=== PATIENT | female | born 1955 | race Caucasian/White ===

== ENCOUNTER 2023-01-15 11:02 | Inpatient (IN) ==
--- NOTE | 2023-01-15 11:30 | ED Triage Note ---
Date of Service January 15, 2023 History of Present Illness This patient was briefly evaluated while in triage. An abbreviated physical exam was performed. This patient is a 68-year-old Female who presents to the ED for evaluation of evaluation after worsening infection of the right eye. Patient believes that she sustained a bite to the eye. She was referred from Dr. Haile, patient's PCP patient is currently taking doxycycline. Patient is allergic to penicillins she reports swelling of the right face, as well as stabbing pain around the eye, and pressure in the right may also radiates to right posterior scalp region. Physical Exam CONSTITUTIONAL: Healthy and well nourished. Patient does not appear toxic HEENT: Examination shows notable edema and erythema about the right eye and right facial region. No conjunctival injection. EOMs intact without evidence for entrapment. This caused mild discomfort. NECK: Full active range of motion without discomfort. LYMPHATICS: No cervical chain adenopathy. RESPIRATORY: Clear to auscultation bilaterally with no wheezing, crackles, rhonchi or stridor. CARDIOVASCULAR: Regular rate and rhythm with no murmurs, rubs or gallops. INTEGUMENTARY: No rash or other significant dermatologic conditions noted. HEMATOLOGIC: No ecchymosis or petechiae. PSYCHIATRIC: Positive affect. NEUROLOGIC: Cranial nerves II-XII grossly intact. No focal neurologic deficits noted. Facial sensations are intact Initial orders for labs and / or imaging were placed and patient was placed in the waiting area until a bed is available. Please see further documentation for the full ED course.
[2023-01-15 12:59] LABS: Basophils # (auto) 0.03 K/uL (0-0.2); Basophils % (auto) 0.3 %; Eosinophils # (auto) 0.11 K/uL (0-0.50); Hematocrit (blood only) 41.8 % (37.0-47.0); Hemoglobin 13.5 g/dl (12.0-16.0); Immature Granulocytes # (auto) 0.03 K/uL (0.01-0.20); Immature Granulocytes % (auto) 0.3 %; Lymphocytes # (auto) 2.76 K/uL (1.2-3.4); Lymphocytes % (auto) 25.7 %; Mean Corpuscular Hemoglobin 27.7 pg (25.0-34.0); Mean Corpuscular Hgb Conc 32.3 g/dL (32.0-36.0); Mean Corpuscular Volume 85.8 fL (80.0-100.0); Mean Platelet Volume 9.3 fL (9.4-12.4); Monocytes # (auto) 1.02 K/uL (0.11-0.59); Monocytes % (auto) 9.5 %; Neutrophils # (auto) 6.79 K/uL (1.40-6.50); Neutrophils % (auto) 63.2 %; Platelet Count 284 K/uL (130-400); RDW Coefficient of Variation 13.3 % (11.5-14.5); RDW Standard Deviation 41.8 fL (36.4-46.3); Red Blood Count 4.87 M/uL (4.20-5.40); White Blood Count 10.74 K/ul (4.8-10.8)
[2023-01-15 13:50] LABS: Albumin Level 4.1 gm/dl (3.4-5.0); Bilirubin,Total 0.4 mg/dl (0.2-1.0); Calcium 9.4 mg/dl (8.6-10.3); Potassium 4.3 mmol/L (3.5-5.1)
[2023-01-15 13:56] LABS: Albumin Globulin Ratio 1.3 (0.9-2); BUN Creatinine Ratio 16.9 (10-20); Creatinine Clr Calc Pharmacy 88.2 ml/min; Est GFR (Non-African American) 90.6 ml/min; Globulin 3.2 gm/dl (2.5-4.0); Total Protein 7.3 gm/dl (6.0-8.3)
[2023-01-15] MEDS ORDERED: OPTIRAY 350 100ml IV ONE (14:12)
[2023-01-15] MEDS ORDERED: valACYclovir HCL 500 MG TABLET PO ONE (14:39)
[2023-01-15] MEDS ORDERED: cefTRIAXone SODIUM 2,000 MG/70 ML BAG IV STA (14:39)
--- NOTE | 2023-01-15 14:46 | Emergency Department Note ---
Impression & Plan Periorbital cellulitis of right eye, Acute facial pain ED Provider Note NAME: BINU GIBBONS AGE: 68 SEX: F : 1955 ARRIVES VIA: Walk-In INFORMANT: Patient ED PROVIDER(S): Dylan Quinn DO CHIEF COMPLAINT: facial pain HPI: Patient is a 68-year-old female who presents to the ER for swelling and redness around the right eye. Denies any fevers. No headache or change in vision. She does have some pain within the eye. No chest pain or shortness of breath. No nausea, vomiting, or diarrhea. No dysuria, urgency, or frequency. She was seen by her PCP on Thursday and placed on antibiotics and started doxycycline and has continued to get worse. No other exacerbating or remitting factors. She notes the swelling around her eye has worsened as well. It is red and warm. She does notice some pain with movement of the eye. PAST MEDICAL HISTORY:See Below PAST SURGICAL HISTORY:See Below FAMILY HISTORY:See Below SOCIAL HISTORY:See Below HOME MEDICATIONS:See Below ALLERGIES:See Below VITALS:See Below PHYSICAL EXAMINATION: GENERAL: Sitting up in bed, alert, well appearing, well nourished, no distress, non-toxic EYE EXAM: normal conjunctiva. PERRL and EOM's intact. FACE: Swelling over the right side of face tracking under the right cheek and around the right eye. Small amount of induration. Small scab. There is a scab behind the right ear. OROPHARYNX: no exudate, no erythema, lips, buccal mucosa, and tongue normal and mucous membranes are moist NECK: supple, no nuchal rigidity, no adenopathy, non-tender LUNGS: Clear to auscultation. Normal chest wall mechanics HEART: no murmurs, S1 normal and S2 normal ABDOMEN: abdomen soft, non-tender, normo-active bowel sounds, no masses, no rebound or guarding. UPPER EXTREMITIES: upper extremities are grossly normal. LOWER EXTREMITIES: No pitting edema. NEURO EXAM: Normal sensorium, cranial nerves II-XII grossly intact, normal spe ech, no gross weakness of arms, no gross weakness of legs. MEDICAL DECISION MAKING: Patient is a 68-year-old female who presents ER for erythema around the right eye. Currently on antibiotics and getting worse. IV was established blood work was obtained. Labs show no significant leukocytosis or anemia. BMP along with LFTs bilirubin was unremarkable. COVID was negative. Blood sugar was slightly low. On exam I question if this is zoster as she does have scabbed lesions behind the ear but cannot be certain. She does have a clear cellulitis. Patient was given IV antibiotics. She was updated bedside. Did stain the right eye and saw no dendritic lesions. Patient was updated bedside. Discussed with the hospitalist admitted for further work-up. Discussed with care managers in regards to admission and further work-up. Triage Nursing notes reviewed. Limited review of prior medical records performed Vital Signs: reviewed and remarkable for HTN and tachy Differential diagnosis: Cellulitis, abscess, MRSA infection, DVT, necrotizing fasciitis, dermatitis, drug eruption, allergic reaction, as well as other pathologies. ER treatment provided: See below Diagnostics interpreted by me include EKG and cardiac monitoring as listed below: -Cardiac Monitoring: An order was placed for continuous cardiac monitoring. The monitor shows a rate of 101 with sinus rhythm. -ECG: none -Laboratory studies:Interpreted by me as stated above in MDM and shown below. Imaging studies: Xrays: As interpreted by me:none CTs show: CT of the face shows a cellulitis Consultation(s): Discussed with Dr. Washburn for further evaluation management and treatment Critical Care: None Past Med/Surg History Social History Smoking Status: Never smoker Preferred Language: Setswana Feels Safe at Home: Yes Allergies Allergies Allergy/AdvReac Type Severity Reaction Status Date / Time Penicillins Allergy Severe SEVERE RASH Verified 01/15/23 15:32 Home Meds Home Medications Medication Instructions Recorded Confirmed bupropion HCl 150 mg tablet,12 hr 150 mg PO BID 01/15/23 01/15/23 sustained-release doxycycline hyclate 100 mg tablet 100 mg PO BID 01/15/23 01/15/23 lansoprazole 30 mg capsule,delayed 30 mg PO QAM 01/15/23 01/15/23 release levothyroxine 50 mcg tablet 50 mcg PO QAM 01/15/23 01/15/23 lorazepam 0.5 mg tablet 0.25 mg PO TID PRN Anxiety 01/15/23 01/15/23 lovastatin 40 mg tablet 40 mg PO HS 01/15/23 01/15/23 metformin 500 mg tablet 500 mg PO QAM 01/15/23 01/15/23 ramipril 5 mg capsule 5 mg PO QAM 01/15/23 01/15/23 Results & Data (ED) Vital Signs Vital Signs - 24 hr 01/15/23 11:23 01/15/23 16:00 Temperature 37.0 C Temperature Source Temporal Artery Scan Pulse Rate 100 H Pulse Rate [Finger] 102 H Respiratory Rate 18 20 Respiratory Effort / Characteristics Non-Labored Spontaneous Respiratory Depth Normal Respiratory Pattern Regular Blood Pressure 142/84 H Blood Pressure [Right Arm] 135/97 Blood Pressure Mean 103 Blood Pressure Mean [Right Arm] 109 Blood Pressure Position Sitting Blood Pressure Position [Right Arm] Sitting Pulse Oximetry 98 99 Oxygen Delivery Method Room Air Room Air Sepsis Recent Fever Within 48 Hours No Sepsis New/Unexplained Change in Mental Status No Sepsis Action Taken by Nursing No Action Required Laboratory Data 01/15/23 12:38 01/15/23 12:38 Lab Results 01/15/23 01/15/23 01/15/23 Range/Units 12:38 12:38 16:29 WBC 10.74 (4.8-10.8) K/ul RBC 4.87 (4.20-5.40) M/uL Hgb 13.5 (12.0-16.0) g/dl Hct 41.8 (37.0-47.0) % MCV 85.8 (80.0-100.0) fL MCH 27.7 (25.0-34.0) pg MCHC 32.3 (32.0-36.0) g/dL RDW Std Deviation 41.8 (36.4-46.3) fL RDW Coeff of Chelly 13.3 (11.5-14.5) % Plt Count 284 (130-400) K/uL MPV 9.3 L (9.4-12.4) fL Immature Gran % (Auto) 0.3 % Neut % (Auto) 63.2 % Lymph % (Auto) 25.7 % [place] % (Auto) 9.5 % Eos % (Auto) 1.0 % Baso % (Auto) 0.3 % Neut # (Auto) 6.79 H (1.40-6.50) K/uL Lymph # (Auto) 2.76 (1.2-3.4) K/uL [place] # (Auto) 1.02 H (0.11-0.59) K/uL Eos # (Auto) 0.11 (0-0.50) K/uL Baso # (Auto) 0.03 (0-0.2) K/uL Immature Gran # (Auto) 0.03 (0.01-0.20) K/uL Sodium 140 (136-145) mmol/L Potassium 4.3 (3.5-5.1) mmol/L Chloride 106 (98-107) mmol/L Carbon Dioxide 28 (21-32) mmol/L Anion Gap 6 (3-11) BUN 11 (6-23) mg/dl Creatinine 0.65 (0.6-1.2) mg/dl Est Cr Clr Drug Dosing 88.2 ml/min Est GFR ( Amer) 105.0 ml/min Est GFR (Non-Af Amer) 90.6 ml/min BUN/Creatinine Ratio 16.9 (10-20) Glucose 68 L (70-99(Fasting)) mg/dl Calcium 9.4 (8.6-10.3) mg/dl Total Bilirubin 0.4 (0.2-1.0) mg/dl AST 22 (13-39) U/L ALT 26 (7-52) U/L Alkaline Phosphatase 90 (34-104) U/L Total Protein 7.3 (6.0-8.3) gm/dl Albumin 4.1 (3.4-5.0) gm/dl Globulin 3.2 (2.5-4.0) gm/dl Albumin/Globulin Ratio 1.3 (0.9-2) SARS-CoV-2, RNA, NAAT NEGATIVE (NEGATIVE) Administered Medications Vancomycin HCl 1,750 mg/ (Sodium Chloride) 535 mls @ 200 mls/hr IV NOW ONE Stop: 01/15/23 19:55 Last Admin: 01/15/23 17:52 Dose: 200 mls/hr Documented By: NMS Discontinued Medications Ceftriaxone Sodium (Rocephin) 2,000 mg in 70 mls @ 140 mls/hr IV NOW STA Stop: 01/15/23 15:08 Last Infusion: 01/15/23 15:30 Dose: 0 mls/hr Documented By: Admin: 01/15/23 14:52 Dose: 140 mls/hr Documented By: QGV Ioversol (Optiray 350 100ml) 94 ml IV ONCE ONE Stop: 01/15/23 14:13 Last Admin: 01/15/23 14:13 Dose: 94 ml Documented By: ZOFIA Proparacaine HCl (Proparacaine 0.5% 225 Drops/15 Ml Btl) Confirm Administered Dose 225 drops .ROUTE .STK-MED ONE Stop: 01/15/23 15:19 Last Admin: 01/15/23 15:32 Dose: Not Given Documented By: QGV Proparacaine HCl (Proparacaine 0.5% 225 Drops/15 Ml Btl) 2 drops OP NOW STA Stop: 01/15/23 15:32 Last Admin: 01/15/23 15:32 Dose: 2 drops Documented By: QGV Valacyclovir HCl (Valacyclovir Hcl 500 Mg Tablet) 1,000 mg PO NOW ONE Stop: 01/15/23 14:40 Last Admin: 01/15/23 14:51 Dose: 1,000 mg Documented By: QGV Imaging Data Radiologist's Impression: Face CT 01/15/23 11:30 CT facial bones w con HISTORY: 68 years-old Female R periorbital cellulitis acute right faci al/periorbital soft tissue swelling COMPARISON: None TECHNIQUE: Multiple axial CT images of the maxillofacial bones were obtained following the intravenous administration of 94 mL Optiray 350. A dose lowering technique was used consistent with the principals of EMILY. FINDINGS: The imaged intracranial structures are unremarkable. The orbits are within normal limits. Moderate subcutaneous edema is noted inferior and lateral to the right orbit. The bilateral globes and post septal tissues are within normal limits. No drainable fluid collection, discrete mass or opaque foreign body identified. No pathologically enlarged lymph nodes. The parotid and submandibular glands are within normal limits. The imaged airway appears patent. No acute facial bone fracture. The mastoid air cells and paranasal sinuses appear clear. The patient is edentulous. Degenerative changes of the cervical spine. IMPRESSION: 1. Moderate right facial/periorbital subcutaneous edema may represent a contusion versus cellulitis. No discrete fluid collection. 2. Normal appearance of the bilateral globes and post septal soft tissues. 3. No lymphadenopathy. ACT 112: Negative or not required by law. The above report was generated using voice recognition software. It may contain grammatical, syntax or spelling errors. Electronically signed by: Angus Benoit M.D. 01/15/2023 3:02 PM Discharge Plan Visit Data Chief Complaint: Facial Injury/Pain Stated Complaint: LUMP ON FACE ED Provider: Dylan Quinn Discharge Problem: Periorbital cellulitis of right eye, Acute facial pain Forms Stand Alone Forms: My [facility] Prescriptions Prescriptions: No Action metformin 500 mg tablet 500 mg PO QAM Rx Instructions: HOLD FOR 2 DAYS D/T CT SCAN(01/15/23) bupropion HCl 150 mg tablet sustained-release 12 hr 150 mg PO BID lovastatin 40 mg tablet 40 mg PO HS lorazepam 0.5 mg tablet 0.25 mg PO TID PRN (Reason: Anxiety) levothyroxine 50 mcg tablet 50 mcg PO QAM lansoprazole 30 mg capsule,delayed release(DR/EC) 30 mg PO QAM doxycycline hyclate 100 mg tablet 100 mg PO BID Rx Instructions: STARTED 01/13/23 FOR 10 DAYS ramipril 5 mg capsule 5 mg PO QAM Referrals Referrals: Nena Monge M.D. [Outside Practitioners] -
--- NOTE | 2023-01-15 15:03 | CT Scan Report ---
CT facial bones w con HISTORY: 68 years-old Female R periorbital cellulitis acute right facial/periorbital soft tissue swe lling COMPARISON: None TECHNIQUE: Multiple axial CT images of the maxillofacial bones were obtained following the intravenou s administration of 94 mL Optiray 350. A dose lowering technique was used consistent with the [facility]. FINDINGS: The imaged intracranial structures are unremarkable. The orbits are within normal limits. Moderate puga bcutaneous edema is noted inferior and lateral to the right orbit. The bilateral globes and post sept al tissues are within normal limits. No drainable fluid collection, discrete mass or opaque foreign b charu identified. No pathologically enlarged lymph nodes. The parotid and submandibular glands are with in normal limits. The imaged airway appears patent. No acute facial bone fracture. The mastoid air cells and paranasal sinuses appear clear. The patient is edentulous. Degenerative changes of the cervical spine. IMPRESSION: 1. Moderate right facial/periorbital subcutaneous edema may represent a contusion versus cellulitis. No discrete fluid collection. 2. Normal appearance of the bilateral globes and post septal soft tissues. 3. No lymphadenopathy. ACT 112: Negative or not required by law. The above report was generated using voice recognition software. It may contain grammatical, syntax o r spelling errors. Electronically signed by: Angus Benoit M.D. 01/15/2023 3:02 PM
[2023-01-15] MEDS ORDERED: PROPARACAINE 0.5% 225 DROPS/15 ML BTL ONE (15:18)
[2023-01-15] MEDS ORDERED: PROPARACAINE 0.5% 225 DROPS/15 ML BTL OP STA (15:31)
[2023-01-15] MEDS ORDERED: VANCOMYCIN CONSULT ACTIVE PRN ×2 (16:46→19:19)
--- NOTE | 2023-01-15 16:53 | History & Physical Report ---
Date of Service January 15, 2023 Assessment & Plan (1) Periorbital cellulitis of right eye: Plan: - Admit to med/surg - Diabetic diet - Cool compresses to affected area q shift - Continue empiric Rocephin 2g IV daily + Vanco - CBC and CMP reviewed, no leukocytosis or electrolyte derangements - Blood cultures ordered/pending - Monitor closely for worsening sx - would consider consult to ophthalmology if worsening (2) Essential hypertension: Plan: - Chronic/controlled - Continue Rampiril (3) Hypothyroidism: Plan: - Chronic/stable - Continue Levothyroxine (4) Depression with anxiety: Plan: - Chronic/stable - Continue Wellbutrin and Ativan PRN (5) Type 2 diabetes mellitus: Plan: - Normally takes Metformin - Hold x 48 hrs due to receipt of contrast - BSG AC and HS - Can add short acting insulin coverage for BSG >180 - Diabetic diet ordered Plan Lovenox will be utilized for DVT ppx. Will consult the media promoter due to patient recently losing her of 35 years and has not yet started grief counseling. Above plan of care has been d/w Dr. Newby who has also seen and evaluated this patient. Further orders as warranted. History of Present Illness Chief Complaint: Facial swelling Primary Care Provider: Karla Haile MD Matt Oro is a pleasant 68 yo WF with a pmhx of HTN, depression/anxiety, GERD, hypothyroidism, hyperlipidemia, and who presented to the ER at the alex mmendation of her PCP d/t worsening facial swelling/pain. Patient reports that she woke up on Thursday morning with a small pimple-like lesion to the right of her right eye. She believes that she may have been bit by a spider. She reports that the lesion had a small yellow area in the center. On Thursday, she had worsening swelling and redness which prompted her to seek evaluation by her PCP. She was placed on Doxycycline by her PCP. Since then, she has had progressively worsening redness and swelling. She is also having photosensitivity but not having pain with eye movements. She denies fever/chills, n/v. She has had shingles in the past but denies having any draining vesicular lesions. She fo llowed up with her PCP today and was referred to the ER for failed outpatient oral antibiotics. Her workup in the ER today demonstrated a normal wbc count, no shift, afebrile. CT performed consistent with periorbital cellulitis, no orbital involvement. No fluid collection. She was medicated with a dose of IV Rocephin as well as a dose of oral Valacyclovir for possible shingles and has been referred to the hospitalists for admission. Allergies Allergy/AdvReac Type Severity Reaction Status Date / Time Penicillins Allergy Severe SEVERE RASH Verified 01/15/23 15:32 Home Medications Medication Instructions Recorded Confirmed Type bupropion HCl 150 mg tablet,12 hr 150 mg PO BID 01/15/23 01/15/23 History sustained-release doxycycline hyclate 100 mg tablet 100 mg PO BID 01/15/23 01/15/23 History lansoprazole 30 mg capsule,delayed 30 mg PO QAM 01/15/23 01/15/23 History release levothyroxine 50 mcg tablet 50 mcg PO QAM 01/15/23 01/15/23 History lorazepam 0.5 mg tablet 0.25 mg PO TID PRN Anxiety 01/15/23 01/15/23 History lovastatin 40 mg tablet 40 mg PO HS 01/15/23 01/15/23 History metformin 500 mg tablet 500 mg PO QAM 01/15/23 01/15/23 History ramipril 5 mg capsule 5 mg PO QAM 01/15/23 01/15/23 History Past Med/Surg History Social History Smoking Status: Never smoker Preferred Language: Mohawk Feels Safe at Home: Yes Physical Exam Physical Exam: GENERAL: 68 yo Well-developed, well-nourished WF. NAD. LUNGS: Clear to auscultation bilaterally. No W/R/R. CARDIOVASCULAR: Regular rate and rhythm. SKIN: Erythema and edema with marked tenderness to light palpation lateral to R eye (hinduism area) and upper cheek. Small punctate lesion to R of R eye. No pain with EOMs. No active drainage or bleeding. No fluctuant area noted. No vesicular lesions/rash appreciated. Results & Data Results & Data Vital Signs (Past 12 Hours) Vital Signs Temp Pulse Pulse Resp BP BP Pulse Ox 01/15/23 16:00 102 H 20 135/97 99 01/15/23 11:23 37.0 C 100 H 18 142/84 H 98 O2 Del Method 01/15/23 16:00 Room Air 01/15/23 11:23 Room Air Laboratory Results 01/15/23 12:38 01/15/23 12:[address] 01/15/23 11:30 CT facial bones w con HISTORY: 68 years-old Female R periorbital cellulitis acute right facial/periorbital soft tissue swelling COMPARISON: None TECHNIQUE: Multiple axial CT images of the maxillofacial bones were obtained following the intravenous administration of 94 mL Optiray 350. A dose lowering technique was used consistent with the principals of EMILY. FINDINGS: The imaged intracranial structures are unremarkable. The orbits are within normal limits. Moderate subcutaneous edema is noted inferior and lateral to the right orbit. The bilateral globes and post septal tissues are within normal limits. No drainable fluid collection, discrete mass or opaque foreign body identified. No pathologically enlarged lymph nodes. The parotid and submandibular glands are within normal limits. The imaged airway appears patent. No acute facial bone fracture. The mastoid air cells and paranasal sinuses appear clear. The patient is edentulous. Degenerative changes of the cervical spine. IMPRESSION: 1. Moderate right facial/periorbital subcutaneous edema may represent a contusion versus cellulitis. No discrete fluid collection. 2. Normal appearance of the bilateral globes and post septal soft tissues. 3. No lymphadenopathy. ACT 112: Negative or not required by law. The above report was generated using voice recognition software. It may contain grammatical, syntax or spelling errors. Electronically signed by: Angus Benoit M.D. 01/15/2023 3:02 PM Supervising Physician Co-Signing Physician Notes Patient seen and examined, chart reviewed, case discussed with Talia Woodward PA-C and I agree with the assessment and plan as above except as otherwise noted Labs and images reviewed Matt is a 68-year-old female who experienced a stinging bite on her cheek/eye 4 days ago and has [facility] ehad expandaing erythema and tenderness of the R cheek and eye. Has not improved on outpatient doxycycline. No fevers, chills, sweats. Patient is also intermittently tearful, reports her recently after they were for 34 years. She has a bereavement group she will be attending in the beginning of January but has been struggling with grief and has not reached out to anyone for counseling other than this. Does request a media promoter visit while in the hospital. Visual acuity is intact without field cuts, diplopia, or decreased acuity. EOMs are intact without pain on extraocular movements. She is photosensitive in the right eye only. She has no nuchal rigidity. Right lateral Maller fat pad and hinduism with overlying firmness, erythema, tenderness and small punctate area with scab. No purulence/drainage. CT results reviewed as above, consistent with periorbital but not orbital cellulitis. Agree with treatment with Rocephin/vancomycin, if clinically improving can narrow to likely cefpodoxime/cefdinir. No signs of extraocular muscle involvement on physical exam. Agree with assessment and management above. PG Care Time/CCT Total # of Minutes Spent Total Time Spent with Patient: Total time spent is greater than 50% in coordination of care (as documented) at patient's floor/unit and/or counseling patient: Coding Level of Care Code 05742 INT INP/OBS CARE 3/75MIN Diagnoses Periorbital cellulitis of right eye L03.213 Essential hypertension I10 Hypothyroidism E03.9 Depression with anxiety F41.8 Type 2 diabetes mellitus E11.9
[2023-01-15] MEDS ORDERED: VANCOMYCIN HCL 1,750 MG in SODIUM CHLORIDE 0.9% 500 ML IV ONE (17:15)
--- NOTE | 2023-01-15 19:39 | Pharmacy Report ---
Pharmacy PK ABX Note - Date of Service January 15, 2023 - Assessment and Plan Assessment 68 year old F who presented with swelling and redness around the right eye. She was started on doxycycline on Thursday with worsening symptoms. Vancomycin and ceftriaxone IV are being started for the treatment of periorbital cellulitis. Pertinent microbiologic data includes: BC pending Plan Vancomycin * Loading dose: 1750 mg IV x 1 * Maintenance dose: 1250 mg IV every 12 hours * Regimen is predicted to achieve target AUC/ESAU of 400-600 mg/L.hr * predicted AUC at steady state: 559 * predicted trough at steady state: 17.6 mcg/mL Pharmacy will continue to follow and will adjust dose/frequency as necessary. Thank you. Pharmacy has transitioned to AUC monitoring for vancomycin. AUC/ESAU is the preferred PK/PD target and is associated with decreased risk of nephrotoxicity compared to traditional trough targets.
[2023-01-15] MEDS ORDERED: POLYETHYLENE (MIRALAX) 17 GM PACK PO PRN (20:15)
[2023-01-15] MEDS ORDERED: GLUCOSE 10 TAB/TUBE PO PRN (20:15)
[2023-01-15] MEDS ORDERED: GLUCOSE 40% GEL 15 GM TUBE PO PRN (20:15)
[2023-01-15] MEDS ORDERED: DEXTROSE 50% 50 ML SYRINGE IV PRN (20:15)
[2023-01-15] MEDS ORDERED: CARBOHYDRATES FOR HYPOGLYCEMIA PO PRN (20:15)
[2023-01-15] MEDS ORDERED: ALUMINUM/MAGNESIUM SUSP 30 ML UDC PO PRN (20:15)
[2023-01-15] MEDS ORDERED: MAGNESIUM HYDROXIDE SUSP 30 ML UDC PO PRN (20:15)
[2023-01-15] MEDS ORDERED: ONDANSETRON INJ 2 MG/ML 2 ML VIAL IV PRN (20:15)
[2023-01-15] MEDS ORDERED: GLUCAGON FOR INJ 1 MG VIAL SQ PRN (20:15)
[2023-01-15] MEDS ORDERED: LORazepam 0.5 MG TAB PO PRN (20:15)
[2023-01-15] MEDS: ACETAMINOPHEN 325 MG TAB PO PRN (21:37)
[2023-01-15] MEDS: LOVASTATIN 20 MG TAB PO SCH (21:38)
[2023-01-15] MEDS: buPROPion SR 150 MG TABCR PO SCH (21:39)
[2023-01-16] MEDS: ACETAMINOPHEN 325 MG TAB PO PRN ×4 (00:44→22:01)
[2023-01-16] MEDS: VANCOMYCIN HCL 1,250 MG in SODIUM CHLORIDE 0.9% 250 ML IV SCH ×2 (05:29→17:26)
[2023-01-16] MEDS: LEVOTHYROXINE SODIUM 50 MCG TABLET PO SCH (05:33)
[2023-01-16 07:44] LABS: Basophils # (auto) 0.03 K/uL (0-0.2); Basophils % (auto) 0.4 %; Eosinophils # (auto) 0.13 K/uL (0-0.50); Eosinophils % (auto) 1.7 %; Hematocrit (blood only) 39.8 % (37.0-47.0); Hemoglobin 13.1 g/dl (12.0-16.0); Immature Granulocytes # (auto) 0.03 K/uL (0.01-0.20); Immature Granulocytes % (auto) 0.4 %; Lymphocytes # (auto) 2.13 K/uL (1.2-3.4); Lymphocytes % (auto) 28.2 %; Mean Corpuscular Hemoglobin 27.8 pg (25.0-34.0); Mean Corpuscular Hgb Conc 32.9 g/dL (32.0-36.0); Mean Corpuscular Volume 84.5 fL (80.0-100.0); Mean Platelet Volume 9.4 fL (9.4-12.4); Monocytes # (auto) 0.77 K/uL (0.11-0.59); Monocytes % (auto) 10.2 %; Neutrophils # (auto) 4.46 K/uL (1.40-6.50); Neutrophils % (auto) 59.1 %; Platelet Count 286 K/uL (130-400); RDW Coefficient of Variation 13.4 % (11.5-14.5); RDW Standard Deviation 41.7 fL (36.4-46.3); Red Blood Count 4.71 M/uL (4.20-5.40); White Blood Count 7.55 K/ul (4.8-10.8)
[2023-01-16 07:57] LABS: Albumin Globulin Ratio 1.4 (0.9-2); Albumin Level 3.8 gm/dl (3.4-5.0); BUN Creatinine Ratio 11.9 (10-20); Bilirubin,Total 0.5 mg/dl (0.2-1.0); Calcium 8.9 mg/dl (8.6-10.3); Creatinine Clr Calc Pharmacy 85.5 ml/min; Est GFR (African American) 103.9 ml/min; Est GFR (Non-African American) 89.7 ml/min; Globulin 2.8 gm/dl (2.5-4.0); Potassium 3.8 mmol/L (3.5-5.1); Total Protein 6.6 gm/dl (6.0-8.3)
--- NOTE | 2023-01-16 09:00 | Hospitalist Progress Note ---
Date of Service January 16, 2023 Assessment & Plan (1) Periorbital cellulitis of right eye: Plan: - Diabetic diet - Cool compresses to affected area q shift - Continue empiric Rocephin 2g IV daily + Vanco, to transition to oral Augmentin on discharge (hopefully tomorrow if symptoms continue to improve) - CBC and CMP reviewed, no leukocytosis to suggest systemic infection - Blood cultures ordered, no growth to date - Can consult ophthalmology if symptoms are clinically worsening (2) Essential hypertension: Plan: - Chronic/controlled - Continue Rampiril (3) Hypothyroidism: Plan: - Chronic/stable - Continue Levothyroxine (4) Depression with anxiety: Plan: - Chronic/stable - Continue Wellbutrin and Ativan PRN (5) Type 2 diabetes mellitus: Plan: - Normally takes Metformin - Hold while admitted in favor of diabetic diet as her blood sugars have been within normal range without insulin - BSG ACHS Plan Lovenox will be utilized for DVT ppx. Irrigationist Designer and behavioral health liaison consulted for assistance with grief support for patient, as she recently lost her on and is very tearful at times Admission and Anticipated Discharge Date Admission Date: January 15, 2023 Subjective Patient with some improvement in her right eye pain and swelling today, reports no pain with extraocular movements today as compared to yesterday. No other complaints such as fevers, shortness of breath, chest pain. Review of Systems Review of Systems: All systems reviewed & are unremarkable except as noted in Subjective Physical Exam Constitutional: WD/WN, vitals as above Eyes: Erythema and edema to right lateral periorbital area, with decreased erythema inferior to right eye as compared to yesterday Tenderness noted to palpation of right lateral periorbital area No pain noted with extraocular movements in all directions Respiratory: normal respiratory effort, lungs clear to auscultation Cardiovascular: RRR, no murmur, no edema Skin: no rashes, warm and dry Psychiatric: A+Ox3, euthymic affect Results & Data Results & Data Vital Signs (Past 12 Hours) Vital Signs Temp Pulse Pulse Resp BP BP Pulse Ox 01/16/23 07:47 36.5 C 80 18 117/77 95 01/15/23 23:29 37.2 C 90 101/61 93 01/15/23 21:49 03/30/23 21:49 37.3 C 94 H 16 138/93 95 O2 Del Method 01/16/23 07:47 Room Air 01/15/23 23:29 Room Air 01/15/23 21:49 Room Air 01/15/23 21:49 Room Air PG Care Time/CCT Total # of Minutes Spent Total Time Spent with Patient: Total time spent is greater than 50% in coordination of care (as documented) at patient's floor/unit and/or counseling patient: Coding Level of Care Code 30510 SUB INP/OBS CARE 2/35MIN Diagnoses Periorbital cellulitis of right eye L03.213 Essential hypertension I10 Hypothyroidism E03.9 Depression with anxiety F41.8 Type 2 diabetes mellitus E11.9
[2023-01-16] MEDS: ENALAPRIL MALEATE 10 MG TAB PO SCH (09:22)
[2023-01-16] MEDS: ENOXAPARIN INJ 40 MG/0.4 ML SYR SQ SCH (09:22)
[2023-01-16] MEDS: buPROPion SR 150 MG TABCR PO SCH ×2 (09:22→22:02)
[2023-01-16] MEDS: PANTOprazole 40 MG TAB PO SCH (09:22)
[2023-01-16] MEDS ORDERED: cefTRIAXone SODIUM 2,000 MG in DEXTROSE 5% 50 ML IV SCH (15:00)
[2023-01-16] MEDS: LOVASTATIN 20 MG TAB PO SCH (22:03)
--- NOTE | 2023-01-17 04:50 | Communication Note ---
Date of Service: January 17, 2023 Nursing noted new drainage of right eye abcess, patient complained of the area becoming more hot, with blurry vision. Ordered wound culture of discharge. Given her history of diabetes, will increase abx coverage for pseudomonas as well, switched from ceftriaxone to cefepime. Ordered MRSA swab. Case discussed with Dr. Friedman.
[2023-01-17] MEDS ORDERED: VANCOMYCIN LEVEL ONE (05:30)
[2023-01-17] MEDS: CEFEPIME 2,000 MG in SYRINGE 0 ML IV SCH ×2 (05:33→16:29)
[2023-01-17] MEDS: VANCOMYCIN HCL 1,250 MG in SODIUM CHLORIDE 0.9% 250 ML IV SCH ×2 (05:38→17:59)
[2023-01-17] MEDS: LEVOTHYROXINE SODIUM 50 MCG TABLET PO SCH (05:39)
[2023-01-17 06:04] LABS: Hematocrit (blood only) 39.7 % (37.0-47.0); Mean Corpuscular Hgb Conc 32.7 g/dL (32.0-36.0); Mean Corpuscular Volume 85.6 fL (80.0-100.0); Mean Platelet Volume 9.2 fL (9.4-12.4); Platelet Count 277 K/uL (130-400); RDW Coefficient of Variation 13.2 % (11.5-14.5); RDW Standard Deviation 41.1 fL (36.4-46.3); Red Blood Count 4.64 M/uL (4.20-5.40); White Blood Count 4.72 K/ul (4.8-10.8)
[2023-01-17 06:08] LABS: Creatinine Clr Calc Pharmacy 85.5 ml/min; Est GFR (African American) 103.9 ml/min; Est GFR (Non-African American) 89.7 ml/min
--- NOTE | 2023-01-17 07:27 | Hospitalist Progress Note ---
Date of Service January 17, 2023 Assessment & Plan (1) Periorbital cellulitis of right eye: Plan: - Cool compresses to affected area q shift, and can use topical cortisone for itching and flaking that is occurring due to swelling - Does not appear vesicular at this time, some weeping, does have a history of chickenpox but more likely to be secondary to spider bite causing local cellulitis/abscess as opposed to herpes zoster - Continue vancomycin/cefepime, to transition to oral Abx on discharge pending wound culture sensitivities, possible I+D by plastics/ophtho, consults to both placed today 01/17 - CBC and CMP reviewed, no leukocytosis to suggest systemic infection - Blood cultures ordered, no growth to date; wound culture collected early AM 01/17 pending however had been on Abx for several days at time of culture collection (2) Essential hypertension: Plan: - Chronic/controlled - Continue Rampiril (3) Hypothyroidism: Plan: - Chronic/stable - Continue Levothyroxine (4) Depression with anxiety: Plan: - Chronic/stable - Continue Wellbutrin and Ativan PRN - Behavioral health liaison offered support to patient for grief counseling and resources during this admission (5) Type 2 diabetes mellitus: Plan: - Normally takes Metformin - Hold while admitted in favor of diabetic diet as her blood sugars have been within normal range without insulin - BSG ACHS Plan Lovenox for DVT ppx Government Service Executive and behavioral health liaison consulted as above this admission for grief support Admission and Anticipated Discharge Date Admission Date: January 15, 2023 Subjective Overnight with some drainage of right lateral periorbital swelling, some purulent like drainage, and Abx were escalated. On my interview patient denies pain with ocular movements, blurry vision, double vision. No other systemic symptoms like fever or chills. Review of Systems Review of Systems: All systems reviewed & are unremarkable except as noted in Subjective Physical Exam Constitutional: WD/WN, vitals as above Eyes: Erythema and edema to right lateral periorbital area, with decreased erythema inferior to right eye as compared to yesterday but with more firmness to palpation over lateral swollen area, punctate area with some drainage noted Tenderness noted to palpation of right lateral periorbital area No pain noted with extraocular movements in all directions Respiratory: normal respiratory effort, lungs clear to auscultation Cardiovascular: RRR, no murmur, no edema Skin: no rashes, warm and dry Psychiatric: A+Ox3, euthymic affect Results & Data Results & Data Vital Signs (Past 12 Hours) Vital Signs Temp Pulse Resp BP Pulse Ox O2 Del Method 01/16/23 21:10 36.6 C 84 18 111/70 95 Room Air PG Care Time/CCT Total # of Minutes Spent Total Time Spent with Patient: Total time spent is greater than 50% in coordination of care (as documented) at patient's floor/unit and/or counseling patient: Coding Level of Care Code 69833 SUB INP/OBS CARE 3/50MIN Diagnoses Periorbital cellulitis of right eye L03.213 Essential hypertension I10 Hypothyroidism E03.9 Depression with anxiety F41.8 Type 2 diabetes mellitus E11.9
[2023-01-17] MEDS: ENOXAPARIN INJ 40 MG/0.4 ML SYR SQ SCH (08:27)
[2023-01-17] MEDS: ENALAPRIL MALEATE 10 MG TAB PO SCH (08:28)
[2023-01-17] MEDS: buPROPion SR 150 MG TABCR PO SCH ×2 (08:28→20:16)
[2023-01-17] MEDS: PANTOprazole 40 MG TAB PO SCH (08:29)
--- NOTE | 2023-01-17 09:22 | Pharmacy Report ---
Pharmacy PK ABX Note - Date of Service January 17, 2023 - Assessment and Plan Assessment * 68 year old F who presented with swelling and redness around the right eye. She was started on doxycycline on Thursday with worsening symptoms. * Currently receiving cefepime and vancomycin for the treatment of periorbital cellulitis. * Pertinent microbiologic data includes * BC x2 NGTD * Right eye - pending Plan Vancomycin * Level obtained this AM (01/17) * Maintenance dose: 1250 mg IV every 12 hours * Regimen is predicted to achieve target AUC/ESAU of 400-600 mg/L.hr * predicted AUC at steady state: 470 * predicted trough at steady state: 13.3 mcg/mL Pharmacy will continue to follow and will adjust dose/frequency as necessary. Thank you. Pharmacy has transitioned to AUC monitoring for vancomycin. AUC/ESAU is the preferred PK/PD target and is associated with decreased risk of nephrotoxicity compared to traditional trough targets.
[2023-01-17] MEDS ORDERED: TRIAMCINOLONE ACET 0.1% CR 15 GM TUBE EXT PRN (14:48)
--- NOTE | 2023-01-17 19:07 | Oral/Maxillofacial Consult ---
Date of Consultation January 17, 2023 History of Present Illness Attending Physician: Susan Krueger DO History of Present Illness Oral Maxillofacial Surgery Exam Present Complaint: Patient is a 68-year-old female who presents to the ER for swelling and redness around the right eye. Denies any fevers. No headache or change in vision. She does have some pain within the eye. No chest pain or shortness of breath. No nausea, vomiting, or diarrhea. No dysuria, urgency, or frequency. She was seen by her PCP on Thursday and placed on antibiotics and started doxycycline and has continued to get worse. No other exacerbating or remitting factors. She notes the swelling around her eye has worsened as well. It is red and warm. She does notice some pain with movement of the eye At present her symptoms have improved-drainage is noted. Oral Exam: No teeth present 2 lower implants No dental etiology to present infection Imaging: FINDINGS: The imaged intracranial structures are unremarkable. The orbits are within normal limits. Moderate subcutaneous edema is noted inferior and lateral to the right orbit. The bilateral globes and post septal tissues are within normal limits. No drainable fluid collection, discrete mass or opaque foreign body identified. No pathologically enlarged lymph nodes. The parotid and sub mandibular glands are within normal limits. The imaged airway appears patent. No acute facial bone fracture. The mastoid air cells and paranasal sinuses appear clear. The patient is edentulous. Degenerative changes of the cervical spine. IMPRESSION: 1. Moderate right facial/periorbital subcutaneous edema may represent a contusion versus cellulitis. No discrete fluid collection. 2. Normal appearance of the bilateral globes and post septal soft tissues. 3. No lymphadenopathy. Soft tissue: Swelling right lateral orbital area, eye is all WNL, Good ROM, No paraesthesia noted, facial nerve good function There is drainage noted, the area is softer and less painful Matt feels that she is getting better with the IV antibiotics Head/Neck exam: Neck is supple, FROM, Able to extend and flex neck w/o difficulty, no masses, no abnormalities, Treatment Plan: Suggested heat, massage and continue the IV antibiotics I palpated the area a clear fluid was expressed--I suggested she continue to massage and use heat. I will check on Thursday AM--if improved then OK for D/C on oral antibiotics If the area fills up again then I will need to do a wider I&D I reviewed the treatment plan with Matt Understanding was expressed. Time was given for questions I will re evaluate Thursday Jolene: Mrs. Oro now has good drainage from the right side orbital swelling. She feels that occurred after an insect bite? Given that there are no sinus, dental, denture irrational lesions, an insect bite or possible a facial pimple most likely is the cause. I have seen this in the past with similar finding around the lips and nose-- usual this turns out to be a MRSA? No surgical drainage needed at this time, suggested heat, massage and antibiotics. Await the wound culture. I will see Thursday. Allergies Allergy/AdvReac Type Severity Reaction Status Date / Time Penicillins Allergy Severe SEVERE RASH Verified 01/16/23 12:01 Home Medications Medication Instructions Recorded Confirmed Type bupropion HCl 150 mg tablet,12 hr 150 mg PO BID 01/15/23 01/15/23 History sustained-release doxycycline hyclate 100 mg tablet 100 mg PO BID 01/15/23 01/15/23 History lansoprazole 30 mg capsule,delayed 30 mg PO QAM 01/15/23 01/15/23 History release levothyroxine 50 mcg tablet 50 mcg PO QAM 01/15/23 01/15/23 History lorazepam 0.5 mg tablet 0.25 mg PO TID PRN Anxiety 01/15/23 01/16/23 History lovastatin 40 mg tablet 40 mg PO HS 01/15/23 01/15/23 History metformin 500 mg tablet 500 mg PO QAM 01/15/23 01/15/23 History ramipril 5 mg capsule 5 mg PO QAM 01/15/23 01/15/23 History 8 Greens Gummy 2 gummy PO BID 01/16/23 01/16/23 History acetaminophen 500 mg tablet 500 mg PO Q6H PRN Pain 01/16/23 01/16/23 History ibuprofen 200 mg tablet 200 mg PO Q6H PRN Pain 01/16/23 01/16/23 History Patient History Social History Smoking Status: Never smoker Hx Alcohol Use: Yes Hx Substance Use: No Preferred Language: Danish Communication Ability: Effective Supervisor Newspaper Deliveries Required: No Beliefs That Will Affect Care: Christianity Current Living Situation: Alone Other Information That Helps Us Care for You: No Feels Safe at Home: Yes Safety Concerns: Feels Safe At This Time Assistive Devices: Cane, Hospital Bed, Walker and Wheelchair Results & Data Vital Signs (Past 12 Hours) Vital Signs Temp Pulse Resp BP Pulse Ox O2 Del Method 01/17/23 14:45 36.7 C 86 16 121/83 95 Room Air 01/17/23 07:29 36.4 C L 83 16 119/78 96 Room Air PG Care Time/CCT Total # of Minutes Spent Total Time Spent with Patient: Total time spent is greater than 50% in coordination of care (as documented) at patient's floor/unit and/or counseling patient: Coding Level of Care Code 60280 INT INP/OBS CARE MIN Diagnoses
[2023-01-17] MEDS: LOVASTATIN 20 MG TAB PO SCH (20:15)
[2023-01-18] MEDS: LEVOTHYROXINE SODIUM 50 MCG TABLET PO SCH (05:50)
[2023-01-18] MEDS: CEFEPIME 2,000 MG in SYRINGE 0 ML IV SCH ×2 (05:51→16:45)
[2023-01-18] MEDS: VANCOMYCIN HCL 1,250 MG in SODIUM CHLORIDE 0.9% 250 ML IV SCH ×2 (05:56→18:23)
[2023-01-18 07:11] LABS: Hemoglobin 12.7 g/dl (12.0-16.0); Mean Corpuscular Hemoglobin 27.7 pg (25.0-34.0); Mean Corpuscular Hgb Conc 32.6 g/dL (32.0-36.0); Mean Platelet Volume 8.9 fL (9.4-12.4); Platelet Count 282 K/uL (130-400); RDW Coefficient of Variation 13.1 % (11.5-14.5); RDW Standard Deviation 40.5 fL (36.4-46.3); Red Blood Count 4.59 M/uL (4.20-5.40); White Blood Count 5.08 K/ul (4.8-10.8)
[2023-01-18 07:22] LABS: Creatinine Clr Calc Pharmacy 89.6 ml/min; Est GFR (African American) 105.5 ml/min
--- NOTE | 2023-01-18 07:24 | Hospitalist Progress Note ---
Date of Service January 18, 2023 Assessment & Plan (1) Periorbital cellulitis of right eye: Plan: - Warm compresses to affected area and milking for drainage, and can use topical cortisone for itching and flaking that is occurring due to swelling - Does not appear vesicular at this time, some weeping, does have a history of chickenpox but more likely to be secondary to spider bite causing local cellulitis/abscess as opposed to herpes zoster - Continue vancomycin/cefepime, to transition to oral Abx on discharge pending wound culture sensitivities (Staph with sensitivities pending so far); BCx negative to date - Dr. Palomares to see tomorrow AM and can possibly discharge tomorrow on oral Abx depending on culture sensitivities and continued improvement - CBC and CMP reviewed, no leukocytosis to suggest systemic infection (2) Essential hypertension: Plan: - Chronic/controlled - Continue Rampiril (3) Hypothyroidism: Plan: - Chronic/stable - Continue Levothyroxine (4) Depression with anxiety: Plan: - Chronic/stable - Continue Wellbutrin and Ativan PRN - Behavioral health liaison offered support to patient for grief counseling and resources during this admission (5) Type 2 diabetes mellitus: Plan: - Normally takes Metformin - Hold while admitted in favor of diabetic diet, blood sugars have been within normal range without insulin - BSG ACHS Plan Lovenox for DVT ppx Holter Scanning Technician and behavioral health liaison consulted as above this admission for grief support Admission and Anticipated Discharge Date Admission Date: January 15, 2023 Subjective Some drainage of right facial abscess overnight, no change in vision, no painful eye movements, no fevers or chills Review of Systems Review of Systems: All systems reviewed & are unremarkable except as noted in Subjective Physical Exam Constitutional: WD/WN, vitals as above Eyes: Normal EOM with no pain with movement, vision intact right periocular area with draining abscess, surrounding erythema that is improving Psychiatric: A+Ox3, euthymic affect Results & Data Results & Data Vital Signs (Past 12 Hours) Vital Signs Temp Pulse Resp BP BP Pulse Ox O2 Del Method 01/18/23 07:09 36.8 C 77 17 115/76 92 Room Air 01/17/23 21:00 36.7 C 75 18 136/86 95 Room Air PG Care Time/CCT Total # of Minutes Spent Total Time Spent with Patient: Total time spent is greater than 50% in coordination of care (as documented) at patient's floor/unit and/or counseling patient: Coding Level of Care Code 49030 SUB INP/OBS CARE 235MIN Diagnoses Periorbital cellulitis of right eye L03.213 Essential hypertension I10 Hypothyroidism E03.9 Depression with anxiety F41.8 Type 2 diabetes mellitus E11.9
[2023-01-18] MEDS: ENOXAPARIN INJ 40 MG/0.4 ML SYR SQ SCH (08:38)
[2023-01-18] MEDS: buPROPion SR 150 MG TABCR PO SCH ×2 (08:38→20:08)
[2023-01-18] MEDS: PANTOprazole 40 MG TAB PO SCH (08:38)
[2023-01-18] MEDS: ENALAPRIL MALEATE 10 MG TAB PO SCH (08:39)
[2023-01-18] MEDS: LOVASTATIN 20 MG TAB PO SCH (20:08)
[2023-01-18] MEDS: ACETAMINOPHEN 325 MG TAB PO PRN (23:35)
[2023-01-19] MEDS: CEFEPIME 2,000 MG in SYRINGE 0 ML IV SCH (05:20)
[2023-01-19] MEDS: LEVOTHYROXINE SODIUM 50 MCG TABLET PO SCH (05:26)
[2023-01-19] MEDS ORDERED: VANCOMYCIN LEVEL ONE (05:30)
[2023-01-19] MEDS: VANCOMYCIN HCL 1,250 MG in SODIUM CHLORIDE 0.9% 250 ML IV SCH (06:20)
[2023-01-19 06:39] LABS: Creatinine Clr Calc Pharmacy 95.5 ml/min; Est GFR (African American) 107.8 ml/min
--- NOTE | 2023-01-19 07:55 | Discharge Summary ---
Discharge Summary Date of Service January 19, 2023 Admission HPI Per Admitting Provider Matt Oro is a pleasant 68 yo WF with a pmhx of HTN, depression/anxiety, GERD, hypothyroidism, hyperlipidemia, and who presented to the ER at the recommendation of her PCP d/t worsening facial swelling/pain. Patient reports that she woke up on Thursday morning with a small pimple-like lesion to the right of her right eye. She believes that she may have been bit by a spider. She reports that the lesion had a small yellow area in the center. On Thursday, she had worsening swelling and redness which prompted her to seek evaluation by her PCP. She was placed on Doxycycline by her PCP. Since then, she has had progressively worsening redness and swelling. She is also having photosensitivity but not having pain with eye movements. She denies fever/chills, n/v. She has had shingles in the past but denies having any draining vesicular lesions. She followed up with her PCP today and was referred to the ER for failed outpatient oral antibiotics. Her workup in the ER today demonstrated a normal wbc count, no shift, afebrile. CT performed consistent with periorbital cellulitis, no orbital involvement. No fluid collection. She was medicated with a dose of IV Rocephin as well as a dose of oral Valacyclovir for possible shingles and has been referred to the hospitalists for admission. Admission Exam Per Admitting Provider GENERAL: 68 yo Well-developed, well-nourished WF. NAD. LUNGS: Clear to auscultation bilaterally. No W/R/R. CARDIOVASCULAR: Regular rate and rhythm. SKIN: Erythema and edema with marked tenderness to light palpation lateral to R eye (christian area) and upper cheek. Small punctate lesion to R of R eye. No pain with EOMs. No active drainage or bleeding. No fluctuant area noted. No vesicular lesions/rash appreciated. Principal Dx & Hospital Course #1 = Principal Diagnosis (1) Periorbital cellulitis of right eye: - Continue warm compresses to affected area and milking for drainage, and can use topical cortisone for itching and flaking that is occurring due to swelling - Does not appear vesicular at this time, some weeping, does have a history of chickenpox but more likely to be secondary to spider bite causing local cellulitis/abscess as opposed to herpes zoster - Vancomycin/cefepime transitioned to oral Bactrim for total of 7 more days of antibiotics, for Bactrimsensitive Staph aureus infection - Dr. Palomares provided patient with his contact information in the event that this is not resolved in 7 days - CBC and CMP reviewed, no leukocytosis to suggest systemic infection (2) Essential hypertension: - Chronic/controlled - Continue Ramipril (3) Hypothyroidism: - Chronic/stable - Continue Levothyroxine (4) Depression with anxiety: - Chronic/stable - Continue Wellbutrin and Ativan PRN - Behavioral health liaison offered support to patient for grief counseling and resources during this admission (5) Type 2 diabetes mellitus: - Resume home metformin - BSG ACHS Plan Discharged to home without escalated care needs, oral antibiotics, follow-up as needed with Dr. Palomares/PCP Discharge Exam Constitutional WD/WN, vitals as above Eyes Normal EOM with no pain with movement, vision intact right periocular area with draining abscess, surrounding erythema that is continuing to improve, erythema is mostly lateral, minimal inferior erythema at this point Updated Medication List Medication Instructions Recorded Confirmed Type bupropion HCl 150 mg tablet,12 hr 150 mg PO BID 01/15/23 01/15/23 History sustained-release lansoprazole 30 mg capsule,delayed 30 mg PO QAM 01/15/23 01/15/23 History release levothyroxine 50 mcg tablet 50 mcg PO QAM 01/15/23 01/15/23 History lorazepam 0.5 mg tablet 0.25 mg PO TID PRN Anxiety 01/15/23 01/16/23 History lovastatin 40 mg tablet 40 mg PO HS 01/15/23 01/15/23 History metformin 500 mg tablet 500 mg PO QAM 01/15/23 01/15/23 History ramipril 5 mg capsule 5 mg PO QAM 01/15/23 01/15/23 History 8 Greens Gummy 2 gummy PO BID 01/16/23 01/16/23 History acetaminophen 500 mg tablet 500 mg PO Q6H PRN Pain 01/16/23 01/16/23 History ibuprofen 200 mg tablet 200 mg PO Q6H PRN Pain 01/16/23 01/16/23 History sulfamethoxazole 800 1 tab PO Q12 7 days #14 tabs 01/19/23 Rx mg-trimethoprim 160 mg tablet (Bactrim DS) triamcinolone acetonide 0.1 % 1 applic EXT BID PRN itching 5 01/19/23 Rx topical cream days #15 grams Hospital Stay Data Consultations 01/15/23 15:23 ED Decision to Admit Stat 01/16/23 13:10 Consult Behavioral Health Liaison Routine 01/17/23 07:19 Consult Ophthalmology Routine 01/17/23 14:41 Consult Plastic Surgery Routine Diagnostic Imagining Performed 01/15/23 11:30 CT face [CT facial bones w con] Stat Discharge Instructions Given to Patient (Per Discharging Provider) You were admitted to the hospital for evaluation and management of an infection around your right eye called a periorbital cellulitis, likely from your spider bite. This started to develop a fluid collection called an abscess, which started to drain on its own with warm compresses and time. The bacteria grew out to be Staph aureus sensitive to oral antibiotics. You were given IV antibiotics while you are in the hospital, and after wound cultures, we were able to transition your antibiotics to oral Bactrim (trimethoprim-sulfa methoxazole) as your bacteria were sensitive to this. This was sent to your pharmacy. Please take this antibiotic as directed until it is gone, even if your eye begins to feel completely better, to completely kill all of the bacteria in the infection. I also sent the triamcinolone itching cream, every 12 hours as needed for itching. You should also moisturize that area with a skin se nsitive gentle moisturizer. Continue your warm compresses, 4 times a day (with meals and before bed so you remember). If you have any worsening of your symptoms, please see your primary care provider or an veneer drier feeder about this. If you have urgent concerns regarding your medical condition and vision, please seek urgent medical attention like you did this hospitalization. Total Time Total Time Spent Total Time Spent (In Minutes): 35 minutes Coding Level of Care Code 77531 INP/OBS DISCH >30 MIN Diagnoses Periorbital cellulitis of right eye L03.213 Essential hypertension I10 Hypothyroidism E03.9 Depression with anxiety F41.8 Type 2 diabetes mellitus E11.9
[2023-01-19] MEDS ORDERED: SULFAMETHOXAZOLE/TRIMETHOPRIM DS 800/160MG TAB PO SCH (09:00)
--- NOTE | 2023-01-19 09:36 | Oral/Maxillofacial Progress Nt ---
Date of Service January 19, 2023 Assessment & Plan Admission and Anticipated Discharge Date Admission Date: January 15, 2023 Subjective Much improved today No further drainage and less red/swollen OK for D/C with oral antibiotics I would expect that w/in the next 5-7 days this will be completely resolved--if not Matt will call my office for follow up. OK for D/C as per Oral Maxillofacial Surgery Results & Data Vital Signs (Past 12 Hours) Vital Signs Temp Pulse Resp BP Pulse Ox O2 Del Method 01/19/23 08:14 36.6 C 78 14 122/84 97 Room Air PG Care Time/CCT Total # of Minutes Spent Total Time Spent with Patient: Total time spent is greater than 50% in coordination of care (as documented) at patient's floor/unit and/or counseling patient: Coding Level of Care Code None Diagnoses
[2023-01-19] MEDS: ENALAPRIL MALEATE 10 MG TAB PO SCH (10:04)
[2023-01-19] MEDS: buPROPion SR 150 MG TABCR PO SCH (10:04)
[2023-01-19] MEDS: PANTOprazole 40 MG TAB PO SCH (10:05)
[2023-01-19] MEDS: ENOXAPARIN INJ 40 MG/0.4 ML SYR SQ SCH (10:06)
== END 2023-01-19 13:18 | disposition home or self-care (01) | DRG 603 ==
LOC: ED 11:02 → SUATTDRO 16:45 → 3W 16:45